=== PATIENT | female | born 1965 | race Hispanic/Latino ===

== ENCOUNTER 2019-01-28 11:11 | Emergency (ER) | payer BC, SELFPAY ==
[2019-01-28 13:37] LABS: Hemoglobin 8.8 g/dL (12.0-16.0); Mean Corpuscular HGB CONC 31.8 g/dL (32.0-36.0); Mean Corpuscular Hemoglobin 22.8 pg (27.0-31.0); Mean Corpuscular Volume 71.8 fL (78.0-98.0); Mean Platelet Volume 8.9 fL (7.4-10.4); Platelet Count 277 thou/uL (130-400); RBC Distribution Width 14.9 % (11.5-14.5); Red Blood Cell (RBC) Count 3.86 mill/uL (4.20-5.40); White Blood Cell (WBC) Count 6.8 thou/uL (4.8-10.8)
[2019-01-28] MEDS ORDERED: Acetaminophen 325 MG TAB ONE (13:37)
--- NOTE | 2019-01-28 13:52 | ULT ---
RIGHT LOWER EXTREMITY VENOUS DUPLEX EXAM: Date: 01/28/19 HISTORY: Leg pain and swelling. FINDINGS: Real-time color Doppler evaluation of the right lower extremity was performed from groin to calf. Thi s includes evaluation of the common femoral, superficial and profunda femoral, saphenous, popliteal, and trifurcation veins. This shows patent deep venous system. There is normal compressibility and aug mentation. There is no evidence of deep venous thrombosis. IMPRESSION: No evidence of deep venous thrombosis of the right lower extremity. POS: [facility]
[2019-01-28 14:02] LABS: #Eosinphils 0.2 thou/uL (0.0-0.7); #Lymphocytes 2.1 thou/uL (1.20-3.40); #Monocytes 0.4 thou/uL (0.11-0.59); %Basophils 0.6 % (0.0-1.0); %Eosinophils 2.6 % (0.0-10.0); %Lymphocytes 31.1 % (21.0-51.0); %Monocytes 6.5 % (0.0-10.0); %Neutrophils 59.2 % (42.0-75.0); Anisocytosis SLIGHT = 6-15 cells (100X) (0-5/hpf); Hypochromia SLIGHT = 6-15 cells (100X) (0-5/hpf); MDiff Complete? YES; Microcytosis SLIGHT = 6-15 cells (100X) (0-5/hpf); Platelet Morphology Comment Appears Adequate
[2019-01-28 14:08] LABS: ALT (SGPT) 9 U/L (8-55); AST (SGOT) 18 U/L (5-34); Alkaline Phosphatase 59 U/L (40-150); Anion Gap 11 mmol/L (10-20); BUN (Urea Nitrogen) 13 mg/dL (9.8-20.1); Bilirubin, Total 0.5 mg/dL (0.2-1.2); Calc. Creatinine Clearance 0 mL/min (70-130); Calcium 8.8 mg/dL (7.8-10.44); Carbon Dioxide 27 mmol/L (22-29); Chloride 102 mmol/L (98-107); Estimated GFR-MDRD 79; Globulin 3.1 g/dL (2.4-3.5); Glucose 85 mg/dL (70-105); Potassium 3.8 mmol/L (3.5-5.1); Protein, Total 7.1 g/dL (6.0-8.3); Sodium 136 mmol/L (136-145)
== END 2019-01-28 15:21 | disposition home or self-care (01) ==
LOC: ERS 11:11
DX: M79.604 Pain in right leg (principal); D64.9 Anemia, unspecified; I10 Essential (primary) hypertension; E03.9 Hypothyroidism, unspecified; J45.909 Unspecified asthma, uncomplicated
CPT/HCPCS: 36415; 80053; 85025; 85379

== ENCOUNTER 2019-10-08 08:31 | Emergency (ER) | payer SELFPAY ==
[2019-10-08] MEDS ORDERED: Ketorolac Tromethamine 60 MG/2 ML VIAL ONE (09:14)
== END 2019-10-08 09:50 | disposition home or self-care (01) ==
LOC: ERS 08:31
DX: M19.011 Primary osteoarthritis, right shoulder (principal); E03.9 Hypothyroidism, unspecified; J45.909 Unspecified asthma, uncomplicated
CPT/HCPCS: 96372; 99283; J1885

== ENCOUNTER 2019-11-28 15:08 | Emergency (ER) | payer OTHER ==
[2019-11-28 16:13] LABS: Bacteria/HPF None Seen HPF (None Seen); Bilirubin Negative (Negative); Blood, Urine Trace (Negative); Clarity Clear (Clear); Glucose, Urine (Dipstick) Normal (Negative); Leukocyte 25 Leu/uL (Negative); Mucous/LPF 2+ LPF (<2+); Nitrite Negative (Negative); Protein, Urine (Dipstick) 20 mg/dL (Neg-Trace); RBC/HPF 0-3 HPF (0-3); Urobilinogen Normal mg/dL (Less than 2)
[2019-11-28] MEDS ORDERED: Ondansetron PF 4 MG/2 ML Vial ONE (16:42)
[2019-11-28 16:51] LABS: #Eosinphils 0.1 thou/uL (0.0-0.7); #Lymphocytes 1.7 thou/uL (1.20-3.40); #Monocytes 0.5 thou/uL (0.11-0.59); #Neutrophils 2.5 thou/uL (1.40-6.50); %Basophils 0.6 % (0.0-1.0); %Eosinophils 2.3 % (0.0-10.0); %Lymphocytes 35.9 % (21.0-51.0); %Monocytes 9.6 % (0.0-10.0); %Neutrophils 51.6 % (42.0-75.0); Hemoglobin 11.1 g/dL (12.0-16.0); Mean Corpuscular HGB CONC 33.2 g/dL (32.0-36.0); Mean Corpuscular Hemoglobin 27.6 pg (27.0-31.0); Mean Corpuscular Volume 83.1 fL (78.0-98.0); Mean Platelet Volume 8.6 fL (7.4-10.4); Platelet Count 233 thou/uL (130-400); RBC Distribution Width 12.6 % (11.5-14.5); Red Blood Cell (RBC) Count 4.02 mill/uL (4.20-5.40); White Blood Cell (WBC) Count 4.8 thou/uL (4.8-10.8)
[2019-11-28 17:09] LABS: ALT (SGPT) 17 U/L (8-55); AST (SGOT) 19 U/L (5-34); Albumin 3.8 g/dL (3.5-5.0); Alkaline Phosphatase 68 U/L (40-110); Anion Gap 10 mmol/L (10-20); BUN (Urea Nitrogen) 11 mg/dL (9.8-20.1); Bilirubin, Total 0.2 mg/dL (0.2-1.2); Calc. Creatinine Clearance 0 mL/min (70-130); Calcium 8.3 mg/dL (7.8-10.44); Carbon Dioxide 26 mmol/L (22-29); Chloride 107 mmol/L (98-107); Estimated GFR-MDRD 80; Glucose 89 mg/dL (70-105); Magnesium 2.1 mg/dL (1.6-2.6); Potassium 3.7 mmol/L (3.5-5.1); Protein, Total 6.8 g/dL (6.0-8.3); Sodium 139 mmol/L (136-145)
== END 2019-11-28 17:50 | disposition home or self-care (01) ==
LOC: ERS 15:08
DX: R19.7 Diarrhea, unspecified (principal); E03.9 Hypothyroidism, unspecified; J45.909 Unspecified asthma, uncomplicated; I10 Essential (primary) hypertension; F17.200 Nicotine dependence, unspecified, uncomplicated; Z79.899 Other long term (current) drug therapy
CPT/HCPCS: 36415; 80053; 81003; 81015; 83735; 85025; 96361; 96372; 96374; J0500; J2405

== ENCOUNTER 2023-01-11 14:22 | Emergency (ER) | payer SELFPAY ==
[2023-01-11] MEDS ORDERED: Morphine 4 MG/ML VIAL ONE (17:57)
[2023-01-11] MEDS ORDERED: Ondansetron PF 4 MG/2 ML Vial ONE (17:58)
[2023-01-11 18:03] LABS: #Basophils 0.1 thou/uL (0.0-0.2); #Eosinphils 0.1 thou/uL (0.0-0.7); #Lymphocytes 2.6 thou/uL (1.20-3.40); #Monocytes 0.6 thou/uL (0.11-0.59); #Neutrophils 4.5 thou/uL (1.40-6.50); %Basophils 1.2 % (0.0-1.0); %Eosinophils 1.7 % (0.0-10.0); %Lymphocytes 32.4 % (21.0-51.0); %Monocytes 7.9 % (0.0-10.0); %Neutrophils 56.9 % (42.0-75.0); Hemoglobin 11.7 g/dL (12.0-16.0); Mean Corpuscular HGB CONC 33.3 g/dL (32.0-36.0); Mean Corpuscular Hemoglobin 29.5 pg (27.0-31.0); Mean Corpuscular Volume 88.4 fl (78.0-98.0); Mean Platelet Volume 8.8 fL (7.4-10.4); Platelet Count 247 10x3/uL (130-400); RBC Distribution Width 11.5 % (11.5-14.5); Red Blood Cell (RBC) Count 3.96 mill/uL (4.20-5.40); White Blood Cell (WBC) Count 7.9 10x3/uL (4.8-10.8)
[2023-01-11 18:16] LABS: Bilirubin Negative (Negative); Blood, Urine Negative (Negative); Clarity Clear (Clear); Glucose, Urine (Dipstick) Normal (Negative); Ketone, Urine Negative (Negative); Leukocyte 250 Leu/uL (Negative); Nitrite Negative (Negative); Protein, Urine (Dipstick) Negative (Neg-Trace); RBC/HPF 0-3 HPF (0-3); Specific Gravity, Urine 1.013 (1.002-1.036); Squamous Epithelial 0-3 HPF (0-3); Urobilinogen Normal mg/dL (Less than 2); pH, Urine 5.5 (5.0-9.0)
[2023-01-11 18:17] LABS: Bacteria/HPF Rare-Few HPF (None Seen)
[2023-01-11 18:26] LABS: ALT (SGPT) 18 U/L (8-55); AST (SGOT) 18 U/L (5-34); Alkaline Phosphatase 86 U/L (40-110); Anion Gap 11 mmol/L (10-20); BUN (Urea Nitrogen) 10 mg/dL (9.8-20.1); Bilirubin, Total 0.3 mg/dL (0.2-1.2); Calc. Creatinine Clearance 0 mL/min (70-130); Calcium 8.9 mg/dL (7.8-10.44); Carbon Dioxide 28 mmol/L (22-29); Chloride 104 mmol/L (98-107); Estimated GFR 99; Globulin 2.9 g/dL (2.4-3.5); Glucose 89 mg/dL (70-105); Lipase 25 U/L (8-78); Potassium 3.9 mmol/L (3.5-5.1); Protein, Total 6.9 g/dL (6.0-8.3); Sodium 139 mmol/L (136-145)
== END 2023-01-11 19:17 | disposition home or self-care (01) ==
LOC: ERS 14:22
DX: N10 Acute pyelonephritis (principal); I10 Essential (primary) hypertension; E03.9 Hypothyroidism, unspecified
CPT/HCPCS: 36415; 71046; 74176; 80053; 81003; 81015; 83690; 84484; 85025; 85379; 87077; 87086; 87186; 93005; 96374; 96375; J2270; J2405

== ENCOUNTER 2023-09-23 17:34 | Emergency (ER) | payer OTHER, SELFPAY ==
[2023-09-23] MEDS ORDERED: Ibuprofen 800 MG TAB ONE (18:45)
[2023-09-23] MEDS ORDERED: Dexamethasone 10 MG/ML VIAL ONE (18:45)
[2023-09-23] MEDS ORDERED: Ipratropium/Albuterol 3 ML NEB ONE (18:53)
== END 2023-09-23 19:42 | disposition home or self-care (01) ==
LOC: ERS 17:34
DX: J10.1 Influenza due to other identified influenza virus with other respiratory manifestations (principal); I10 Essential (primary) hypertension; Z79.899 Other long term (current) drug therapy
CPT/HCPCS: 71045; 87804; 93005; 94640; J1100; J7620

== ENCOUNTER 2024-08-14 07:57 | Emergency (ER) | payer OTHER ==
[2024-08-14] MEDS ORDERED: Ketorolac Tromethamine 30 MG (1 mL) VIAL ONE (08:46)
== END 2024-08-14 08:56 | disposition home or self-care (01) ==
LOC: ERS 07:57
DX: M25.522 Pain in left elbow (principal); I10 Essential (primary) hypertension; Z79.899 Other long term (current) drug therapy
CPT/HCPCS: 96372; 99282; J1885

== ENCOUNTER 2025-06-23 23:03 | Observation (INO) | payer BC, OTHER ==
[2025-06-24 01:30] LABS: #Basophils 0.05 10x3/uL (0.0-0.2); #Eosinophils 0.23 10x3/uL (0.0-0.7); #Monocytes 0.49 10x3/uL (0.11-0.59); #Neutrophils 4.26 10x3/uL (1.40-6.50); %Basophils 0.6 % (0.0-1.0); %Eosinophils 2.8 % (0.0-10.0); %Lymphocytes 37.7 % (21.0-51.0); %Monocytes 6.0 % (0.0-10.0); %Neutrophils 52.7 % (42.0-75.0); Hematocrit 38.2 % (36.0-47.0); Hemoglobin 12.6 g/dL (12.0-16.0); Mean Corpuscular Hemoglobin 28.8 pg (27.0-31.0); Mean Corpuscular Volume 87.2 fL (78.0-98.0); Platelet Count 297 10x3/uL (130-400); Red Blood Cell (RBC) Count 4.38 mill/uL (4.20-5.40); White Blood Cell (WBC) Count 8.11 10x3/uL (4.8-10.8)
[2025-06-24 01:50] LABS: ALT (SGPT) 19 U/L (Less than 34); AST (SGOT) 28 U/L (11-34); Albumin 4.0 g/dL (3.1-4.5); Alkaline Phosphatase 89 U/L (40-110); Anion Gap 13 mmol/L (10-20); BUN (Urea Nitrogen) 14 mg/dL (9.8-20.1); Bilirubin, Total 0.2 mg/dL (0.3-1.2); Calc. Creatinine Clearance 0 mL/min (70-130); Calcium 8.8 mg/dL (7.8-10.44); Carbon Dioxide 27 mmol/L (22-29); Chloride 104 mmol/L (98-107); Globulin 3.2 g/dL (2.4-3.5); Glucose 96 mg/dL (70-105); Potassium 4.1 mmol/L (3.5-5.1); Sodium 140 mmol/L (136-145)
[2025-06-24] MEDS ORDERED: Metoclopramide HCl 10 MG (2 mL) VIAL ONE (03:33)
[2025-06-24] MEDS ORDERED: diphenhydrAMINE 50 MG/ML VIAL ONE (03:33)
[2025-06-24] MEDS ORDERED: Ondansetron PF 4 MG/2 ML Vial IVP PRN (08:38)
[2025-06-24] MEDS ORDERED: Electrolyte Replacement Protocol 1 EACH FS SCH (08:45)
[2025-06-24] MEDS ORDERED: Albuterol 2.5 MG (3 mL) NEB NEB PRN (09:29)
[2025-06-24] MEDS: Acetaminophen 325 MG TAB PO PRN (10:01)
[2025-06-24] MEDS ORDERED: Prochlorperazine 10 MG/2 ML VIAL SLOW IVP PRN (10:50)
[2025-06-24] MEDS ORDERED: diphenhydrAMINE 50 MG/ML VIAL IVP PRN (10:50)
[2025-06-24 20:00] VITALS: BMI 41.3
[2025-06-25 04:04] LABS: #Basophils 0.04 10x3/uL (0.0-0.2); #Eosinophils 0.20 10x3/uL (0.0-0.7); #Monocytes 0.42 10x3/uL (0.11-0.59); #Neutrophils 4.03 10x3/uL (1.40-6.50); %Basophils 0.6 % (0.0-1.0); %Eosinophils 2.9 % (0.0-10.0); %Lymphocytes 31.5 % (21.0-51.0); %Monocytes 6.1 % (0.0-10.0); %Neutrophils 58.6 % (42.0-75.0); Hematocrit 35.8 % (36.0-47.0); Hemoglobin 11.2 g/dL (12.0-16.0); Mean Corpuscular Hemoglobin 28.4 pg (27.0-31.0); Mean Corpuscular Volume 90.6 fL (78.0-98.0); Platelet Count 248 10x3/uL (130-400); Red Blood Cell (RBC) Count 3.95 mill/uL (4.20-5.40); White Blood Cell (WBC) Count 6.88 10x3/uL (4.8-10.8)
[2025-06-25 04:26] LABS: Anion Gap 11 mmol/L (10-20); BUN (Urea Nitrogen) 16 mg/dL (9.8-20.1); Calc. Creatinine Clearance 134 mL/min (70-130); Calcium 8.1 mg/dL (7.8-10.44); Carbon Dioxide 26 mmol/L (22-29); Chloride 107 mmol/L (98-107); Glucose 100 mg/dL (70-105); Potassium 4.0 mmol/L (3.5-5.1); Sodium 140 mmol/L (136-145)
[2025-06-25] MEDS ORDERED: Lisinopril 10 MG TAB PO SCH (09:00)
[2025-06-25] MEDS: Lisinopril 20 MG TAB PO SCH (09:51)
[2025-06-25 15:57] VITALS: BP 158/87; TEMP 98.4
== END 2025-06-25 18:12 | disposition home or self-care (01) ==
LOC: ERS 23:03 → 2SE 06-24 05:58
PROVIDERS: ADMIT Internal Medicine; ATTEND Internal Medicine
DX: D35.2 Benign neoplasm of pituitary gland (principal); I10 Essential (primary) hypertension; E03.9 Hypothyroidism, unspecified; F41.9 Anxiety disorder, unspecified; Z98.51 Tubal ligation status; Z90.49 Acquired absence of other specified parts of digestive tract; Z79.899 Other long term (current) drug therapy
CPT/HCPCS: 36415; 70450; 70553; 76376; 80048; 80053; 84443; 84484; 85025; 93005; 96365; 96375; G0378; J1200; J2765